=== PATIENT | female | born 1960 | race Caucasian/White ===

== ENCOUNTER 2019-11-25 10:49 | Emergency (ER) | payer MEDICAID ==
[2019-11-25 11:12] LABS: BILIRUBIN,URINE NEGATIVE (NEGATIVE); KETONES,URINE (UA) TRACE mg/dL (NEGATIVE); OCCULT BLOOD,URINE NEGATIVE (NEGATIVE)
[2019-11-25 11:16] LABS: CLARITY,URINE CLEAR (CLEAR)
[2019-11-25 11:26] LABS: BACTERIA,URINE Rare /HPF (None Seen); RBC,URINE 0-5 /HPF (0-5); SQUAMOUS EPITHELIAL CELL,UR NONE SEEN (<= Few)
[2019-11-25 11:27] VITALS: BP 162/132
[2019-11-25] MEDS ORDERED: DEXAMETHASONE 10 MG/ML VIAL PO STA (12:10)
[2019-11-25] MEDS ORDERED: CHERRY SYRUP 10 ML UDC PO ONE (12:10)
--- NOTE | 2019-11-25 12:12 | ED Physician Documentation ---
PD HPI BACK PAIN - Stated complaint Stated Complaint: BACK PX - Chief complaint Chief Complaint: UTI - History obtained from History obtained from: Patient - History of Present Illness Timing - onset: How many months ago (2) Timing - duration: Months (2) Timing - details: Gradual onset, Still present, Waxing and waning Location: Lower, Right Quality: Pain, Spasm, Sharp, Similar to prior episodes Associated symptoms: No: Fever, Weakness, Numbness, Incontinent of urine, Unable to urinate, Incontinent of stool Improves with: Rest, Ice, Position, Meds Worsened by: Movement, Lifting Contributing factors: Lifting Similar symptoms before: Diagnosis (degenerative spine disease) Recently seen: Not recently seen - Additional information Additional information: 58-year-old female has taken on the job of caring for her grandchildren 1 of which is a 3-year-old which she lifts frequently. She has developed some pain in her lower back over the last 2 months and this pain has now become worse. Over the past 2 days she has had an exacerbation of this pain and when she developed some urinary symptoms yesterday of urgency and dysuria she became concerned about kidney infection and has come to the emergency department. She is not having issue with nausea and her pain is related to movement. Review of Systems Constitutional: denies: Fever, Chills, Myalgias Eyes: denies: Decreased vision Ears: denies: Ear pain Nose: denies: Rhinorrhea / runny nose, Reviewed and negative Throat: denies: Sore throat Cardiac: denies: Chest pain / pressure, Palpitations Respiratory: denies: Dyspnea, Cough GI: denies: Abdominal Pain, Nausea, Vomiting : reports: Dysuria, Frequency Skin: denies: Rash Musculoskeletal: reports: Back pain. denies: Neck pain Neurologic: denies: Generalized weakness, Focal weakness, Numbness PD PAST MEDICAL HISTORY - Past Medical History Cardiovascular: Hypertension, High cholesterol Respiratory: None Neuro: None Endocrine/Autoimmune: None GI: GERD LINUX SYSTEM ENGINEER: None : Kidney stones HEENT: Chronic vision loss Psych: Depression, Anxiety Musculoskeletal: Chronic back pain Derm: None - Past Surgical History Past Surgical History: Yes Ortho: Carpal Tunnel surgery /LINUX SYSTEM ENGINEER: Other - Present Medications Home Medications: Ambulatory Orders Medication Instructions Recorded Confirmed Cyclobenzaprine [Flexeril] 10 mg PO TID PRN #20 tablet 11/25/19 Hydrocodone/Acetaminophen 1 - 2 each PO Q6H PRN #14 tablet 11/25/19 [Hydrocodon-Acetaminophen 5-325] - Allergies Allergies/Adverse Reactions: Allergies Allergy/AdvReac Type Severity Reaction Status Date / Time No Known Drug Allergies Allergy Verified 11/25/19 10:58 - Social History Does the pt smoke?: No Smoking Status: Former smoker Does the pt drink ETOH?: Yes ETOH Use: Other Does the pt have substance abuse?: Yes Substance Use and Type: Marijuana - Immunizations Immunizations are current?: Yes - POLST Patient has POLST: No PD ED PE NORMAL - Vitals Vital signs reviewed: Yes (hypertensive) - General General: Alert and oriented X 3, No acute distress, Well developed/nourished - HEENT HEENT: Atraumatic, PERRL, EOMI - Respiratory Respiratory: No respiratory distress - Back Back: No CVA TTP, No spinal TTP, Other (There is mild lumbar paraspinous muscle tenderness bilaterally worse on the right and lower lumbar area extending into the sciatic notch. 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 ORANGE Urine Clarity CLEAR Urine pH 5.0 Ur Specific [place] 1.020 Urine Protein Urine Glucose (UA) Urine Ketones TRACE Urine Occult Blood NEGATIVE Urine Nitrite Urine Bilirubin NEGATIVE Urine Urobilinogen Ur Leukocyte Esterase Urine RBC 0-5 Urine WBC 0-3 Ur Squamous Epith Cells NONE SEEN Urine Bacteria Rare Ur Microscopic Review INDICATED Urine Culture Comments NOT INDICATED Procedures - Bedside sono Bedside sono by EMP: With use of bedside ultrasound both kidneys are imaged there is no evidence of hydronephrosis no perinephric masses or swelling or fluid and the kidneys are sonographically nontender. - IVC sono (time) 1150 Bedside IVC sono: IVC measures (cm) (1.22), IVC collapsed c insp (cm) (complete), Dehydration (est 1 liter deficit) PD MEDICAL DECISION MAKING - ED course Complexity details: reviewed results, re-evaluated patient, considered differential, d/w patient ED course: 58-year-old female with back pain has overuse syndrome and she is found to be dehydrated on interrogation of the inferior vena cava. I discussed with the patient the magnification of symptoms related to dehydration and likely this is why she had the urinary symptoms yesterday her urine today has no whites or red cells of concern she does have the Pyridium on board. There is no evidence of kidney stone on examination of the kidneys with the bedside ultrasound. I suspect her pain is entirely lumbar spasm related to overuse and she is given a dose of dexamethasone she is instructed to ice and stretch her back we will provide some pain medication a muscle relaxants and have her reduce her level of activity. Departure - Departure Disposition: 01 Home, Self Care Clinical Impression: Dehydration Lumbago Qualifiers: Chronicity: acute Back pain laterality: right Sciatica presence: with sciatica Sciatica laterality: sciatica of right side Qualified Code(s): M54.41 - Lumbago with sciatica, right side Condition: Stable Instructions: ED Sprain Strain Lumbar, ED Dehydration Follow-Up: LASHANDA MARCIAL MD [Primary Care Provider] - Prescriptions: Cyclobenzaprine [Flexeril] 10 mg PO TID PRN #20 tablet PRN Reason: Spasms Hydrocodone/Acetaminophen [Hydrocodon-Acetaminophen 5-325] 1 - 2 each PO Q6H PRN #14 tablet PRN Reason: pain
== END 2019-11-25 12:24 | disposition home or self-care (01) ==
LOC: ED 10:49
DX: E86.0 Dehydration (principal); M54.41 Lumbago with sciatica, right side; M70.88 Other soft tissue disorders related to use, overuse and pressure other site; X50.9XXA Other and unspecified overexertion or strenuous movements or postures, initial encounter; Y93.89 Activity, other specified; I10 Essential (primary) hypertension
CPT/HCPCS: 81001; 99283; 99284; A9270; 81003; 87086